=== PATIENT | male | born 1975 ===

== ENCOUNTER 2023-09-22 05:39 | Outpatient (CLI) | payer OTHER, SELFPAY ==
[2023-09-22 09:06] LABS: Abs Immature Grans 0.03 10^3/uL (0.0-0.06); Absolute Basophil Count 0.04 10^3/uL (0.0-0.2); Absolute Eosinophil Count 0.12 10^3/uL (0.0-0.7); Absolute Lymphocyte Count 2.71 10^3/uL (1.2-3.4); Absolute Monocyte Count 0.42 10^3/uL (0.1-0.8); Absolute Neutrophil Count 6.19 10^3/uL (1.2-6.7); Basophils % 0.4; Eosinophils % 1.3; HCT 43.5 % (40.0-50.0); Immature Grans % 0.3; Lymphocytes % 28.5; MCH 32.2 pg (27.0-33.0); MCHC 34.5 % (32.0-36.0); MCV 93 fL (80-95); MPV 9.7 fL (8.0-11.0); Monocytes % 4.4; Neutrophils % 65.1; Platelet Count 217 10^3/uL (130-400); RBC 4.66 10^6/uL (4.36-5.78); RDW 12.8 % (11.8-14.1); RDW-SD 43.9 fL; WBC 9.51 10^3/uL (4.4-10.8)
[2023-09-22 09:49] LABS: ALT 28 U/L (16-63); AST 20 U/L (15-37); Albumin 4.4 g/dL (3.4-5.0); Alkaline Phosphatase 50 U/L (46-116); Anion Gap 7.2 mmol/L (3-11); BUN 17 mg/dL (7-18); Bilirubin, Total 0.6 mg/dL (0.2-1.0); CO2 27.8 mmol/L (21.0-32.0); CREATININE 1.1 mg/dL (0.70-1.30); Calcium 9.2 mg/dL (8.5-10.1); Calculated LDL 126 mg/dL (<100); Chloride 103 mmol/L (98-107); Cholesterol 194 mg/dL (<200); Estimated GFR 83.84 (mL/min/1.73m2); Glucose 139 mg/dL (74-106); HDL Cholesterol 58 mg/dL (40-60); Potassium 3.7 mmol/L (3.5-5.1); Sodium 138 mmol/L (136-145); Total Protein 7.5 g/dL (6.4-8.2); Triglyceride 52 mg/dL (<150); Vitamin B12 893 pg/mL (193-986)
[2023-09-22 09:50] LABS: Folate > 20.0 ng/mL (8.6-20.0)
[2023-09-22 17:58] LABS: PSA, Screening 0.9 ng/mL (<=2.5)
== END 2023-09-22 05:40 | disposition home or self-care (01) ==
LOC: LBO 05:40
PROVIDERS: Visit Provider Nurse Practitioner Family
DX: Z00.00 Encounter for general adult medical examination without abnormal findings (principal); D51.8 Other vitamin B12 deficiency anemias; R94.5 Abnormal results of liver function studies; E78.41 Elevated Lipoprotein(a); Z12.5 Encounter for screening for malignant neoplasm of prostate
CPT/HCPCS: 36415; 80053; 80061; 84153; 82607; 82746; 85025

== ENCOUNTER 2023-10-03 16:08 | Outpatient (CLI) | payer OTHER, SELFPAY ==
[2023-10-03 16:39] LABS: Hemoglobin A1C 5.6 % (<5.7)
== END 2023-10-03 16:09 | disposition home or self-care (01) ==
LOC: LBO 16:09
PROVIDERS: Visit Provider Nurse Practitioner Family
DX: R73.01 Impaired fasting glucose (principal)
CPT/HCPCS: 36415; 83036

== ENCOUNTER 2024-09-16 01:23 | Outpatient (CLI) | payer OTHER, SELFPAY ==
--- NOTE | 2024-09-16 | DI.MRI_ITS ---
Exam(s) MR LUMBAR SPINE WO/W EXAM: MR LUMBAR SPINE WO/W CLINICAL HISTORY: BACK PAIN, LUMBAR, LESiON OF LUMBAR SPINE M54.50, M99.9. TECHNIQUE: Multiplanar multisequence MRI of the Lumbar Spine was performed. CONTRAST MATERIAL: IV Contrast: 16 mL of Dotarem contrast administered. COMPARISON: No exams were available for comparison FINDINGS: Bones: The last intervertebral disc space is designated the L5/S1 level for the numbering purpose of this examination. The vertebral body heights are well maintained. There is straightening of the norm al lumbar lordosis. The signal characteristics are unremarkable. Cord: The conus tip ends at the T12 level. It is of normal size and signal intensity. T12-L1: No disc herniations or bulges are present. No central spinal canal or neural foraminal stenos is. L1-2: No disc herniations or bulges are present. No central spinal canal or neural foraminal stenosis . L2-3: No disc herniations or bulges are present. No central spinal canal or neural foraminal stenosis . L3-4: No disc herniations or bulges are present. No central spinal canal or neural foraminal stenosis . L4-5: There is a mild diffuse disc bulge. There is mild bilateral neural foraminal narrowing. No sign ificant central spinal canal stenosis. L5-S1: No disc herniations or bulges are present. No central spinal canal or neural foraminal stenosi s. Soft tissues: The visualized SI joints and sacrum are well maintained. The paraspinal soft tissues ar e unremarkable. There is a well-circumscribed ovoid lesion in the subcutaneous tissues of the back casper perficial to the L2 spinous process. It measures 2.7 cm transverse by 0.4 cm AP x 4.5 cm craniocauda d. It follows fat on all pulse sequences. There is no enhancement. The finding is most suggestive of a lipoma. No cyst is seen in the soft tissues of the back. There is no evidence of suspicious enhancement. IMPRESSION: 1. Degenerative changes at L4-L5 resulting in mild bilateral neural foraminal stenosis. 2. 2.7 x 0.4 x 4.5 cm fat signal intensity mass in the subcutaneous tissues on the back most consiste nt with a lipoma. 3. No evidence of a soft tissue cyst or abnormal enhancement. DATA REPOSITORY:
[2024-09-16] MEDS: Gadoterate meglumine 20 ML SYRINGE 16 ML IVP (09:19)
[2024-09-16] MEDS: Normal Saline Flush 10 ML SYR IVP (09:21)
== END 2024-09-16 01:43 ==
PROVIDERS: PCP Nurse Practitioner Family; Visit Provider Nurse Practitioner Family
DX: M51.360 Other intervertebral disc degeneration, lumbar region with discogenic back pain only (principal); M99.63 Osseous and subluxation stenosis of intervertebral foramina of lumbar region
CPT/HCPCS: 72158

== ENCOUNTER 2024-09-24 02:56 | Outpatient (CLI) | payer OTHER, SELFPAY ==
[2024-09-24 11:07] LABS: Abs Immature Grans 0.02 10^3/uL (0.0-0.06); Absolute Basophil Count 0.03 10^3/uL (0.0-0.2); Absolute Lymphocyte Count 2.11 10^3/uL (1.2-3.4); Absolute Monocyte Count 0.38 10^3/uL (0.1-0.8); Absolute Neutrophil Count 3.99 10^3/uL (1.2-6.7); Basophils % 0.5 %; Eosinophils % 1.5 %; HCT 42.7 % (40.0-50.0); HGB 14.5 g/dL (13.5-17.5); Immature Grans % 0.3 %; Lymphocytes % 31.8 %; MCH 32.7 pg (27.0-33.0); MCV 96 fL (80-95); MPV 9.5 fL (8.0-11.0); Monocytes % 5.7 %; Neutrophils % 60.2 %; Platelet Count 207 10^3/uL (130-400); RBC 4.44 10^6/uL (4.36-5.78); RDW 13.2 % (11.8-14.1); RDW-SD 46.7 fL; WBC 6.63 10^3/uL (4.4-10.8)
[2024-09-24 11:51] LABS: ALT 31 U/L (16-63); AST 25 U/L (15-37); Albumin 4.2 g/dL (3.4-5.0); Alkaline Phosphatase 56 U/L (46-116); Anion Gap 7.7 mmol/L (3-11); BUN 16 mg/dL (7-18); Bilirubin, Total 0.4 mg/dL (0.2-1.0); CO2 30.3 mmol/L (21.0-32.0); CREATININE 1.3 mg/dL (0.70-1.30); Calcium 9.1 mg/dL (8.5-10.1); Calculated LDL 103 mg/dL (<100); Chloride 104 mmol/L (98-107); Cholesterol 168 mg/dL (<200); Estimated GFR 68.19 (mL/min/1.73m2); Glucose 115 mg/dL (74-106); HDL Cholesterol 60 mg/dL (>or=40); Potassium 4.4 mmol/L (3.5-5.1); Sodium 142 mmol/L (136-145); Total Protein 7.4 g/dL (6.4-8.2); Triglyceride 27 mg/dL (<150); Vitamin B12 633 pg/mL (193-986)
[2024-09-24 12:37] LABS: Bilirubin Negative (Negative); Blood Negative (Negative); Clarity Clear (Clear); Glucose Negative (Negative); Ketones Negative (Negative); Leukocyte Esterase Negative (Negative); Nitrite Negative (Negative); Urobilinogen 0.2 mg/dL (Up to 0.2)
[2024-09-24 18:16] LABS: PSA, Screening 0.7 ng/mL (<=2.5)
== END 2024-09-24 02:57 | disposition home or self-care (01) ==
LOC: LBO 02:56
PROVIDERS: PCP Nurse Practitioner Family; Visit Provider Nurse Practitioner Family
DX: Z00.00 Encounter for general adult medical examination without abnormal findings (principal); R94.5 Abnormal results of liver function studies; D51.8 Other vitamin B12 deficiency anemias; E78.41 Elevated Lipoprotein(a); Z12.5 Encounter for screening for malignant neoplasm of prostate; R31.21 Asymptomatic microscopic hematuria
CPT/HCPCS: 36415; 80053; 80061; 84153; 81003; 82607; 85025

== ENCOUNTER 2024-09-30 14:01 | Outpatient (CLI) | payer OTHER, SELFPAY | END 2024-09-30 14:02 | disposition home or self-care (01) | PROVIDERS: PCP Nurse Practitioner Family; Visit Provider Nurse Practitioner Family | DX: R00.2 Palpitations (principal) | CPT/HCPCS: 93270 ==

== ENCOUNTER 2024-10-19 12:47 | Outpatient (CLI) | payer OTHER, SELFPAY ==
--- NOTE | 2024-10-19 12:56 | W.CARDEVENT ---
Date of service: 10/19/24 Time of Service: 12:56 Cardiac Event Recorder Referring Provider:: Lilliana Bar Indications:: Palpitations Cardiac Event Note: This is a cardiac event monitor. Patient was monitored for 7 days and 7 hours. Rhythm throughout was sinus with an average heart rate of 67. Minimum was 39, maximum 141. There were no ventricular dysrhythmias. There were no supraventricular dysrhythmias. There was no high-grade AV block, no pauses greater than 3 seconds. There were no apparent symptoms
== END 2024-10-19 12:48 | disposition home or self-care (01) ==
LOC: CARDOPNVT 12:47
PROVIDERS: PCP Nurse Practitioner Family; Visit Provider Internal Medicine Cardiovascular Disease
DX: R00.2 Palpitations (principal)
CPT/HCPCS: 93272